=== PATIENT | female | born 1955 | race Asian ===

== ENCOUNTER 2016-08-08 13:55 | Emergency (ER) | payer OTHER ==
[~2016-08-08 13:55] MED LIST: KEFLEX500 MG PO
[2016-08-08 13:59] LABS: URINE SOURCE CLEAN CATCH
[2016-08-08 14:04] LABS: URINE APPEARANCE CLEAR; URINE BILIRUBIN NEG (NEG); URINE BLOOD NEG (NEG); URINE COLOR YELLOW; URINE GLUCOSE NEG (NEG); URINE KETONE NEG (NEG); URINE LEUKOCYTE ESTERASE NEG (NEG); URINE NITRATE NEG (NEG); URINE PROTEIN NEG (NEG); URINE SPECIFIC GRAVITY 1.025 (1.003-1.035); URINE UROBILINOGEN 0.2 MG/DL (NEG)
[2016-08-08 14:15] LABS: CULTURE INDICATED? NO
[2016-08-08 14:20] LABS: BASOPHIL% 0.3 % (0-2.5); EOSINOPHIL% 0.3 % (0.0-7.0); HEMATOCRIT 26.3 % (35.0-45.0); HEMOGLOBIN 8.6 gm/dL (12.0-16.0); LYMPHOCYTE# 0.9 X10e3 (1.0-3.5); LYMPHOCYTE% 21.8 % (17.0-45.0); MEAN CELL VOLUME 85.1 FL (83-96); MEAN CORPUSCULAR HEMOGLOBIN 27.7 PG (28-34); MEAN CORPUSCULAR HGB CONC 32.6 g/dL (30-36); MONOCYTE# 0.4 X10e3 (0-1.0); MONOCYTE% 8.8 % (3.0-12.0); NEUTROPHIL# 2.8 X10e3 (1.5-7.1); NEUTROPHIL% 68.8 % (40-75); PLATELET COUNT 293 X10e3 (140-420); RED BLOOD COUNT 3.09 X10e (3.90-5.30); RED CELL DISTRIBUTION WIDTH 13.7 % (11.0-15.5)
[2016-08-08 14:22] LABS: DIFF IND NO
[2016-08-08 14:44] LABS: ALBUMIN SERUM 3.1 g/dL (3.5-5.0); BILIRUBIN, DIRECT 0.1 mg/dL (0.0-0.2); BILIRUBIN,INDIRECT 0.3 mg/dL (0.0-0.9); BILIRUBIN,TOTAL 0.4 mg/dL (0.2-2.0); BUN/CREATININE RATIO 37.5; CALCIUM SERUM 8.7 mg/dL (8.4-10.2); CREATININE SERUM 0.4 mg/dL (0.6-1.4); POTASSIUM 3.6 mmol/L (3.5-5.1); PROTEIN TOTAL SERUM 7.7 g/dL (6.0-8.3)
== END 2016-08-08 15:10 | disposition home or self-care (01) ==
LOC: CED 13:55
DX: R10.13 Epigastric pain (principal); D53.9 Nutritional anemia, unspecified
CPT/HCPCS: 36415; 80048; 80076; 81003; 83690; 85025; 96374; 96375; 99284; J2270; J2765